=== PATIENT | male | born 1990 | race American Indian/Alaskan Native ===

== ENCOUNTER 2020-01-14 05:43 | Emergency (ER) | payer SELFPAY ==
[2020-01-14 06:01] VITALS: BP 118/76
--- NOTE | 2020-01-14 07:45 | Emergency Department Report ---
Chief Complaint: Extremity Injury, Lower Stated Complaint: MEDICATION Time Seen by Provider: 01/14/20 07:24 - HPI History of Present Illness: This is a 29-year-old male nontoxic, well nourished in appearance, no acute signs of distress presents to the ED with c/o of skin abrasion to bilateral posterior ankles x1 day. Patient stated that he got new sneakers and due to the friction/rubbing to the skin developed some abrasions. Patient denies any pus or drainage. Patient denies any fever, chills, nausea, vomiting, chest pain, shortness of breath, headache or stiff neck. Patient denies any allergies. - Exam Vital Signs: Vital Signs 01/14/20 06:00 Temperature 97.3 F L Pulse Rate 79 Respiratory 18 Rate Blood Pressure 118/76 [Left] O2 Sat by Pulse 97 Oximetry Physical Exam: GENERAL: The patient is a well-developed, well-nourished in no apparent distress. Patient is alert and acting appropriately for age. Alert and oriented 3, no apparent distress, normal gait, atraumatic. HEENT: Head is normocephalic and atraumatic. LUNGS: RRR HEART: Regular rate EXTREMITIES: Skin abrasion to posterior ankle area. No cellulitis. Without any cyanosis, clubbing, rash, lesions or edema. Peripheral pulses intact. Capillary refill less than 2 seconds. Full range of motion bilaterally. PSYCHIATRIC: Normal affect with no suicidal or homicidal ideations. MSE screening note: Focused history and physical exam performed. Due to findings the following was ordered: ED Medical Decision Making - Medical Decision Making 29-year-old male that presents with skin abrasion. Patient is stable and was examined by me. Vital signs are stable. Physical exam is unremarkable. Patient received sterile dressing to the area. Area has been cleaned. Patient was instructed to follow-up with a primary care doctor in 3-5 days or if symptoms worsen and continue return to emergency room as soon as possible. At time of discharge, the patient does not seem toxic or ill in appearance. No acute signs of distress noted. Patient agrees to discharge treatment plan of care. No further questions noted by the patient. ED Disposition for MSE Clinical Impression: Skin abrasion Disposition: - MED SCREENING EXAM-LEFT Is pt being admited?: No Does the pt Need Aspirin: No Condition: Stable Additional Instructions: Follow-up with a primary care doctor in 3-5 days or if symptoms worsen and continue return to emergency room as soon as possible. Referrals: PRIMARY CARE, [Primary Care Provider] - 3-5 Days SANJUANA NELSON MD [Staff Physician] - 3-5 Days
== END 2020-01-14 07:51 | disposition left against medical advice (07) ==
LOC: ED 05:43
DX: M25.571 Pain in right ankle and joints of right foot (principal); Z53.21 Procedure and treatment not carried out due to patient leaving prior to being seen by health care provider